=== PATIENT | female | born 1995 | race Caucasian/White ===

== ENCOUNTER → 2017-08-05 | Outpatient (CLI) | payer BC ==
--- NOTE | 2017-08-05 15:03 | KCIC ---
RS Compliance Statement: One or more of the following individualized dose reduction techniques were utilized for this examination: 1. Automated exposure control 2. Adjustment of the mA and/or kV according to patient size 3. Use of iterative reconstruction technique EXAMINATION: CT of the paranasal sinuses without contrast 08/05/2017 3:00 PM HISTORY: Sinusitis TECHNIQUE: CT of the paranasal sinuses was performed using sinus protocol without contrast COMPARISON: None available. FINDINGS: Review of the topogram demonstrates no abnormalities. The frontal sinuses are normal. The ethmoid sinuses are normal. The maxillary sinuses are normal. The sphenoid sinuses are normal. The ostiomeatal units are open bilaterally. Nasal septum is deviated to the right. No areas of bony erosion are identified. The orbits are normal. Limited view of the frontal lobes is normal. Mastoid air cells are well aerated. IMPRESSION: Ostiomeatal units are patent bilaterally. Paranasal sinuses are well aerated. Electronically signed by: Holley Quevedo MD (08/05/2017 3:00 PM) [id number]
== END | disposition home or self-care (01) ==
LOC: KCIC CT 14:30
DX: J32.9 Chronic sinusitis, unspecified (principal)
CPT/HCPCS: 70486